=== PATIENT | male | born 1975 | race American Indian/Alaskan Native ===

== ENCOUNTER 2022-01-17 18:50 | Emergency (ER) | payer SELFPAY ==
[2022-01-18 01:37] VITALS: BP 204/143
[2022-01-18] MEDS ORDERED: oxyCODONE /ACETAMINOPHEN 5-325MG TAB PO ONE (01:46)
--- NOTE | 2022-01-18 01:49 | Emergency Department Report ---
ED General Adult HPI - General Chief complaint: Skin/Abscess/Foreign Body Stated complaint: BOIL ON JAW Time Seen by Provider: 01/18/22 01:24 Source: patient Mode of arrival: Ambulatory Limitations: No Limitations - History of Present Illness Initial comments: 46-year-old male presents emerged department complaining of right lower molar region which is worse with palpation and range of motion. Pain is dull throbbing with some swelling noted this morning. No odynophagia or dysphagia. No fever, chills, sweats. No neck pain or rashes appreciated. -: Gradual Location: head, mouth Radiation: non-radiation Severity scale (0 -10): 8 Consistency: constant Improves with: none Worsens with: eating Associated Symptoms: denies: chest pain, cough, diaphoresis, loss of appetite, nausea/vomiting, syncope, weakness - Related Data Previous Rx's Medication Instructions Recorded Last Taken Type Amoxicillin [Amoxicillin TAB] 875 mg PO BID #20 tablet 01/18/22 Unknown Rx Chlorhexidine Mouthwash [Peridex] 15 ml MM BID #1 bottle 01/18/22 Unknown Rx Ketorolac [Toradol] 10 mg PO Q6H PRN #15 tablet 01/18/22 Unknown Rx Lidocaine Viscous 2% 5 ml MM Q3H PRN #120 udc 01/18/22 Unknown Rx ED Review of Systems ROS: Stated complaint: BOIL ON JAW Other details as noted in HPI Comment: All other systems reviewed and negative ED Past Medical Hx - Past Medical History Previous Medical History?: Yes Hx Hypertension: Yes (NONMEDICATED) - Surgical History Past Surgical History?: No - Social History Smoking Status: Current Every Day Smoker Substance Use Type: None, Marijuana - Medications Home Medications: Home Medications Medication Instructions Recorded Confirmed Last Taken Type Amoxicillin [Amoxicillin TAB] 875 mg PO BID #20 tablet 01/18/22 Unknown Rx Chlorhexidine Mouthwash [Peridex] 15 ml MM BID #1 bottle 01/18/22 Unknown Rx Ketorolac [Toradol] 10 mg PO Q6H PRN #15 tablet 01/18/22 Unknown Rx Lidocaine Viscous 2% 5 ml MM Q3H PRN #120 udc 01/18/22 Unknown Rx ED Physical Exam - General Limitations: No Limitations General appearance: alert, in no apparent distress - Head Head exam: Present: atraumatic, normocephalic - Eye Eye exam: Present: normal appearance. Absent: PERRL Pupils: Present: normal accommodation - ENT ENT exam: Present: normal exam, mucous membranes moist, other (Several dental caries noted with adjacent gingival erythema some swelling noted to the right lower mandible an abscess tenderness with palpation. Airway is patent tongue uvula midline.) - Neck Neck exam: Present: normal inspection - Respiratory Respiratory exam: Present: normal lung sounds bilaterally. Absent: respiratory distress - Cardiovascular Cardiovascular Exam: Present: regular rate, normal rhythm. Absent: systolic murmur, diastolic murmur, rubs, gallop - GI/Abdominal GI/Abdominal exam: Present: soft, normal bowel sounds - Rectal Rectal exam: Present: deferred - Extremities Exam Extremities exam: Present: normal inspection - Back Exam Back exam: Present: normal inspection - Neurological Exam Neurological exam: Present: alert, oriented X3 - Psychiatric Psychiatric exam: Present: normal affect, normal mood - Skin Skin exam: Present: warm, dry, intact, normal color. Absent: rash ED Course Vital Signs 01/17/22 01/18/22 19:41 01:36 Temperature 99.0 F 99.3 F Pulse Rate 95 H 101 H Respiratory 18 14 Rate Blood Pressure 226/150 Blood Pressure 204/143 [Right] O2 Sat by Pulse 100 98 Oximetry Critical care attestation.: If time is entered above; I have spent that time in minutes in the direct care of this critically ill patient, excluding procedure time. ED Disposition Clinical Impression: Infected dental caries Disposition: HOME / SELF CARE / HOMELESS Is pt being admited?: No Does the pt Need Aspirin: No Condition: Stable Instructions: Dental Abscess, [id number], Dental Abscess Prescriptions: Amoxicillin [Amoxicillin TAB] 875 mg PO BID #20 tablet Lidocaine Viscous 2% 5 ml MM Q3H PRN #120 udc PRN Reason: Pain, Moderate (4-6) Chlorhexidine Mouthwash [Peridex] 15 ml MM BID #1 bottle Ketorolac [Toradol] 10 mg PO Q6H PRN #15 tablet PRN Reason: Pain Referrals: [facility] [Outside] - 3-5 Days
== END 2022-01-18 02:00 | disposition home or self-care (01) ==
LOC: ED 18:50
DX: K02.9 Dental caries, unspecified (principal); F17.200 Nicotine dependence, unspecified, uncomplicated; F12.90 Cannabis use, unspecified, uncomplicated; I10 Essential (primary) hypertension
CPT/HCPCS: 99282